=== PATIENT | female | born 2000 | race Caucasian/White ===

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

== ENCOUNTER 2019-02-14 15:03 | Emergency (ER) | payer BC ==
[2019-02-14 15:20] VITALS: BP 112/70
--- NOTE | 2019-02-14 15:40 | UC ---
Throat Pain/Nasal Raúl HPI - HPI Summary HPI Summary: 18-year-old female who has had a sore throat starting over the past 24 hours. A few weeks ago she had a rapid strep test done which was negative however the facility where she had it done sent it out and she came back positive for group C strep for which she was treated for with amoxicillin and recovered. She denies any fever or chills. - History of Current Complaint Chief Complaint: UCGeneralIllness Stated Complaint: RUNNY NOSE,ST,COUGH Time Seen by Provider: 02/14/19 15:34 Hx Obtained From: Patient Hx Last Menstrual Period: 01/24/19 ?: No Onset/Duration: Gradual Onset Severity: Mild Pain Intensity: 4 - Allergies/Home Medications Allergies/Adverse Reactions: Allergies Allergy/AdvReac Type Severity Reaction Status Date / Time No Known Allergies Allergy Verified 02/14/19 15:21 Home Medications: Home Medications Amoxicillin PO (*) [Amoxicillin 500 MG CAP*] 500 mg PO TID 02/14/19 [History Confirmed 02/14/19] Fluticasone NASAL SPRAY 50MCG* [Flonase NASAL SPRAY 50MCG*] 2 spray DAILY [History Confirmed 02/14/19] Levonorgestrel-Ethin Estradiol [Larissia-28 Tablet] 1 each PO DAILY 02/14/19 [ History Confirmed 02/14/19] PMH/Surg Hx/FS Hx/Imm Hx Previously Healthy: Yes Other History Of: Negative For: HIV, Hepatitis B, Hepatitis C, Anticoagulant Therapy - Surgical History Surgical History: None - Family History Known Family History: Positive: Hypertension Negative: Cardiac Disease - Social History Alcohol Use: None Substance Use Type: None Smoking Status (MU): Never Smoked Tobacco Have You Smoked in the Last Year: No - Immunization History Most Recent Influenza Vaccination: not yet 2017 Vaccination Up to Date: Yes Review of Systems All Other Systems Reviewed And Are Negative: Yes ENT: Positive: Sore Throat Is Patient Immunocompromised?: No Physical Exam Triage Information Reviewed: Yes Appearance: Well-Appearing, No Pain Distress, Well-Nourished Vital Signs: Initial Vital Signs Temp 98.2 F 02/14/19 15:17 Pulse 82 02/14/19 15:17 Resp 16 02/14/19 15:17 BP 112/70 02/14/19 15:17 Pulse Ox 99 02/14/19 15:17 Vital Signs Reviewed: Yes Eyes: Positive: Conjunctiva Clear ENT: Positive: Hearing grossly normal, Pharyngeal erythema - Mild, TMs normal, Tonsillar swelling, Uvula midline Neck: Positive: Supple, Nontender, Enlarged Nodes @ - Mild bilateral tonsillar lymph node enlargement. Respiratory: Positive: Lungs clear, Normal breath sounds, No respiratory distress, No accessory muscle use Cardiovascular: Positive: RRR, No Murmur, Pulses Normal, Brisk Capillary Refill Abdomen Description: Positive: Nontender, No Organomegaly, Soft. Negative: CVA Tenderness (R), CVA Tenderness (L), Distended, Guarding, Hepatomegaly, McBurney' s Point Tenderness, Splenomegaly Bowel Sounds: Positive: Present Musculoskeletal Exam: Normal Neurological Exam: Normal Psychological Exam: Normal Skin Exam: Normal Throat Pain/Nasal Course/Dx - Course Course Of Treatment: Rapid strep test: Negative The patient is comfortable here. She is to follow-up at the [facility] on Tuesday if she has no improvement or if she starts running a fever or has worsening symptoms - Differential Dx/Diagnosis Provider Diagnosis: Pharyngitis Discharge ED - Sign-Out/Discharge Documenting (check all that apply): Patient Departure All imaging exams completed and their final reports reviewed: No Studies - Discharge Plan Condition: Good Disposition: HOME Patient Education Materials: Pharyngitis (ED) Referrals: Alexandre Elizondo MD [Primary Care Provider] - Additional Instructions: Increase fluids, warm saltwater gargles, throat lozenges, take Tylenol every 4 hours and Motrin every 8 hours for fever or pain. Definite follow-up with your primary care provider if no improvement by early next week. - Billing Disposition and Condition Condition: GOOD Disposition: Home - Attestation Statements Provider Attestation: I was available for consult. This patient was seen by the PENNY. The patient was not presented to, seen by, or examined by me. -Lizbet
== END 2019-02-14 15:58 | disposition home or self-care (01) ==
LOC: UCCORT 15:03
DX: J02.9 Acute pharyngitis, unspecified (principal)
CPT/HCPCS: 87651; 99211; G0463